=== PATIENT | female | born 1950 | race African-American/Black ===

== ENCOUNTER → 2020-02-20 | Outpatient (CLI) | payer MEDICARE, MEDICAID | END | disposition home or self-care (01) | LOC: MRI 09:29 | PROVIDERS: ATTEND Neurological Surgery | DX: M47.816 Spondylosis without myelopathy or radiculopathy, lumbar region (principal); M48.061 Spinal stenosis, lumbar region without neurogenic claudication | CPT/HCPCS: 72148 ==

== ENCOUNTER → 2020-05-18 | Outpatient (CLI) | payer MEDICARE, MEDICAID | END | disposition home or self-care (01) | LOC: LAB 10:35 | DX: Z01.812 Encounter for preprocedural laboratory examination (principal); R05 Cough; Z20.828 Contact with and (suspected) exposure to other viral communicable diseases | CPT/HCPCS: C9803; U0003 ==

== ENCOUNTER → 2020-05-20 | Day surgery (SDC) | payer MEDICARE, MEDICAID ==
[~2020-05-20] VITALS: Ht 165.1 cm; Wt 101.2 kg
[~2020-05-20] MED LIST: ACETAMINOPHEN 325MG TABLET PO PRN; ASPI-1158 MT; CARV6.2548 MT; CHOL100044; CLOP75TA33 MT; FENTANYL CITRATE/PF 50MCG/ML 5ML VIAL ONE; FURO40TA5 MT; IODIXANOL 320MG/ML 100 ML BOTTLE IV ONE; LEVO25TA2 MT; LIDOCAINE HCL 1% 20ML VIAL (Pyxis) INJ ONE; MIDAZOLAM HCL 5 MG/5 ML VIAL ONE; NICARDIPINE 100MCG/ML 10ML VIAL (CATH LAB) IV ONE; NITROGLYCERIN 50MCG/ML 10ML VIAL (CATH LAB) IV ONE; NORCO PO; ONDANSETRON HCL 4MG/2ML INJ IV PRN; PHENYLEPHRINE 100MCG/ML 10ML VIAL (CATH LAB) IV ONE; POTA10TA11 MT
== END | disposition home or self-care (01) ==
LOC: CCL 09:37
PROVIDERS: ATTEND Specialist
DX: R07.9 Chest pain, unspecified (principal); I25.10 Atherosclerotic heart disease of native coronary artery without angina pectoris; I11.0 Hypertensive heart disease with heart failure; I50.9 Heart failure, unspecified; E66.09 Other obesity due to excess calories; E03.9 Hypothyroidism, unspecified; F17.210 Nicotine dependence, cigarettes, uncomplicated; Z79.82 Long term (current) use of aspirin; Z79.899 Other long term (current) drug therapy; Z82.49 Family history of ischemic heart disease and other diseases of the circulatory system; Z98.890 Other specified postprocedural states
CPT/HCPCS: 93458; C1769; C1893; J1644; J2250; J2370; J3010; J3490; Q9967; 99152; G0500